=== PATIENT | female | born 1970 | race Caucasian/White ===

== ENCOUNTER 2018-05-04 14:20 | Day surgery (SDC) | payer OTHER ==
[~2018-05-04] VITALS: Ht 175.3 cm; Wt 76.7 kg
[2018-05-04] MEDS ORDERED: MILK THISTLE140 MG (15:13)
[2018-05-04] MEDS ORDERED: Hair, Skin & N1 EACH (15:13)
== END 2018-05-04 16:29 | disposition home or self-care (01) ==
LOC: ORSCSDS 14:20
PROVIDERS: Surgery
PROC: 0DJD8ZZ Inspection of Lower Intestinal Tract, Via Natural or Artificial Opening Endoscopic (ICD-10-PCS; principal; 2018-05-04 15:30)
DX: Z12.11 Encounter for screening for malignant neoplasm of colon (principal); F17.210 Nicotine dependence, cigarettes, uncomplicated
CPT/HCPCS: J2250; J7120

== ENCOUNTER → 2018-09-30 | Outpatient (CLI) | payer BC ==
[~2018-09-30] MED LIST: ASPI325 PO; Hair, Skin & N1 EACH; METO25 PO; MILK THISTLE140 MG
[2018-10-02 15:07] LABS: HPV 16 Negative (Negative); HPV 18 Negative (Negative); HPV OTHER HR TYPES Negative (Negative)
== END | disposition home or self-care (01) ==
LOC: LAB SHORT 19:03 → LAB 19:03
PROVIDERS: Nurse Practitioner Women's Health
DX: Z12.4 Encounter for screening for malignant neoplasm of cervix (principal); Z91.89 Other specified personal risk factors, not elsewhere classified
CPT/HCPCS: 87624; G0123

== ENCOUNTER → 2019-10-05 | Outpatient (CLI) | payer BC ==
[2019-10-07 16:06] LABS: HPV 16 Negative (Negative); HPV 18 Negative (Negative); HPV OTHER HR TYPES Negative (Negative)
== END | disposition home or self-care (01) ==
LOC: LAB 16:01 → LAB SHORT 16:01 → LAB EV 16:01
PROVIDERS: Nurse Practitioner Women's Health
DX: Z12.4 Encounter for screening for malignant neoplasm of cervix (principal); Z91.89 Other specified personal risk factors, not elsewhere classified
CPT/HCPCS: 87624; G0123